=== PATIENT | male | born 2000 | race Caucasian/White ===

== ENCOUNTER 2023-09-13 12:32 | Emergency (ER) | payer BC ==
[2023-09-13] MEDS: Dexamethasone 4 MG/ML SDV IM ONE (13:56)
[2023-09-13 14:12] LABS: BASOPHILS PERCENT AUTO 0.9 % (0.0-1.0); EOSINOPHILS PERCENT AUTO 1.1 % (1.0-3.0); HEMATOCRIT 42.5 % (40.0-54.0); HEMOGLOBIN 15.4 g/dL (14.0-18.0); LYMPHOCYTES PERCENT AUTO 36.3 % (20.5-50.1); MEAN CORPUSCULAR HEMOGLOBIN 33.3 pg (27.0-34.0); MEAN CORPUSCULAR HGB CONC 36.2 g/dL (33.0-35.0); MONOCYTES PERCENT AUTO 9.9 % (2-8); NEUTROPHILS PERCENT AUTO 51.8 % (42.2-75.2); PLATELET COUNT,PLT 200 10^3/uL (150-450); RED BLOOD CELL COUNT 4.62 10^6/uL (4.6-6.2); WHITE BLOOD CELL COUNT,WBC 4.7 10^3/uL (5.0-10.0)
[2023-09-13 14:33] LABS: A/G RATIO 1.3; ALANINE AMINOTRANSFERASE,ALT 44 U/L (16-63); ALBUMIN 4.4 g/dL (3.4-5.0); ALKALINE PHOSPHATASE 50 U/L (46-116); ANION GAP 10.6 mEq/L (7-13); ASPARTATE AMNIOTRANSFERASE,AST 57 U/L (15-37); BILIRUBIN TOTAL 0.4 mg/dL (0.2-1.0); BLOOD UREA NITROGEN,BUN 12 mg/dL (7-18); BUN/CREATININE RATIO 11.2 (No establ ref range); CALCIUM 9.8 mg/dL (8.5-10.1); CARBON DIOXIDE,CO2 32 mmol/L (21-32); CHLORIDE,CL 103 mmol/L (98-107); CREATININE 1.07 mg/dL (0.70-1.30); EST CRCL DRUG DOSING (CG) 100.67 mL/min; GLUCOSE RANDOM 88 mg/dL (70-99); POTASSIUM,K 3.6 mmol/L (3.5-5.1); PROTEIN TOTAL,TP 7.7 g/dL (6.4-8.2); SODIUM,NA 142 mmol/L (136-145)
[2023-09-13 14:35] LABS: ESTIMATED GFR 99 mL/min (>=60)
== END 2023-09-13 16:00 | disposition home or self-care (01) ==
LOC: DL.ED 12:32
DX: R07.9 Chest pain, unspecified (principal); M25.512 Pain in left shoulder
CPT/HCPCS: 36415; 71045; 80053; 84484; 85025; 93005; 96372; 99285; J1100